=== PATIENT | female | born 1970 | race Caucasian/White ===

== ENCOUNTER 2018-02-07 15:15 | Day surgery (SDC) | payer OTHER ==
[2018-02-07] MEDS ORDERED: NEOSTIGMINE 3 MG/3 ML SYRINGE (18:00)
[2018-02-07] MEDS ORDERED: GLYCOPYRROLATE 0.4 MG INJ ×2 (18:00→18:57)
[2018-02-07] MEDS ORDERED: PROPOFOL 20 ML (18:00)
[2018-02-07] MEDS ORDERED: ROCURONIUM 50 MG INJ (18:00)
[2018-02-07] MEDS ORDERED: LIDOCAINE 2% (SDV) 5 ML INJ (18:00)
[2018-02-07] MEDS ORDERED: CEFAZOLIN 1 GM INJ (18:00)
[2018-02-07] MEDS ORDERED: ROPIVACAINE 0.5 % 30 ML VIAL (18:00)
[2018-02-07] MEDS ORDERED: SUCCINYLCHOLINE CHLORIDE 100 MG/5 ML SYG IV (18:00)
[2018-02-07] MEDS: POLYMYXIN/BACITRACIN 1L IRRIG (18:45)
[2018-02-07] MEDS ORDERED: HYDROCODONE/APAP (5/325) TAB (20:05)
[2018-02-07] MEDS: HYDROCODONE/APAP (5/325) TAB PO (20:25)
== END 2018-02-07 20:50 | disposition home or self-care (01) ==
LOC: REC 15:15 → SDS 15:15
DX: S82.851B Displaced trimalleolar fracture of right lower leg, initial encounter for open fracture type I or II (principal); X58.XXXA Exposure to other specified factors, initial encounter
CPT/HCPCS: 27822; 73600; 73610-RT